=== PATIENT | female | born 1960 | race Caucasian/White ===

== ENCOUNTER 2018-03-29 19:22 | Emergency (ER) | payer MEDICAID ==
[~2018-03-29] VITALS: Ht 162.6 cm; Wt 89.2 kg
[~2018-03-29 19:22] MED LIST: ONDA4TAB6 PO; SACC250C PO
[2018-03-29 19:29] VITALS: BP 164/96
[2018-03-29] MEDS ORDERED: chlordiazePOXIDE 25mg capsule PO ONE (20:55)
[2018-03-29] MEDS ORDERED: normal saline 1000ML IV soln IVB ONE (20:55)
[2018-03-29] MEDS ORDERED: magnesium 2GM in 50ml NS 50 ML IV ONE (20:55)
[2018-03-29] MEDS ORDERED: LORazepam 2 mg/ml vial IV ONE (20:55)
[2018-03-29 21:06] LABS: CLARITY,URINE CLEAR (Clear); COLOR,URINE YELLOW (Yellow); GLUCOSE, URINE NEGATIVE (Neg); KETONES,URINE >=80 mg/dl (Neg); LEUKOCYTE ESTERASE ,URINE NEGATIVE (Neg); NITRITES, URINE NEGATIVE (Neg); OCCULT BLOOD,URINE LARGE (Neg); PROTEIN,URINE 100 mg/dl (Neg)
[2018-03-29 21:11] LABS: BASOPHILS % (AUTO) 0.2 % (0-1); EOSINOPHILS % (AUTO) 0 % (0-6); HEMATOCRIT 40.3 % (35.0-45.0); HEMOGLOBIN 13.8 g/dl (12.0-16.0); LYMPHOCYTES # (AUTO) 0.6 X10'3 (1.1-4.8); LYMPHOCYTES % (AUTO) 9.6 % (21-51); MEAN CORPUSCULAR HEMOGLOBIN 33.7 PG (27.0-31.0); MEAN CORPUSCULAR HGB CONC 34.1 % (33.0-36.5); MEAN CORPUSCULAR VOLUME 98.8 FL (78-98); MONOCYTES # (AUTO) 0.4 X10'3 (0-0.9); MONOCYTES % (AUTO) 5.6 % (2-12); NEUTROPHILS # (AUTO) 5.3 X10'3 (1.8-7.7); NEUTROPHILS % (AUTO) 84.6 % (42-75); PLATELET COUNT 153 X10'3 (140-440); RED BLOOD COUNT 4.08 X10'6 (4.20-5.60); RED CELL DISTRIBUTION WIDTH 15.5 % (11.5-14.5); WHITE BLOOD COUNT 6.3 X10'3 (4.5-11.0)
[2018-03-29 21:12] LABS: UA COLLECTION TYPE VOIDED
[2018-03-29 21:13] LABS: WBC,URINE 0-4 /HPF (0-4)
[2018-03-29 21:14] LABS: BACTERIA,URINE 2+ /HPF (Neg); SQUAMOUS EPITHELIAL CELL,UR MANY /LPF (FEW)
[2018-03-29 21:21] LABS: URINE AMPHETAMINE SCREEN NEGATIVE (Neg); URINE BARBITUATE SCREEN NEGATIVE (Neg); URINE BENZODIAZEPINES SCREEN NEGATIVE (Neg); URINE CANNABINOID SCREEN NEGATIVE (Neg); URINE COCAINE SCREEN NEGATIVE (Neg); URINE METHADONE SCREEN NEGATIVE (Neg); URINE OPIATE SCREEN NEGATIVE (Neg); URINE PHENCYCLIDINE SCREEN NEGATIVE (Neg)
[2018-03-29 21:26] LABS: ALANINE AMINOTRANSFERASE 142 U/L (12-78); ALBUMIN 3.8 G/DL (3.4-5.0); ALKALINE PHOSPHATASE 68 IU/L (46-116); ANION GAP 23 (8-16); ASPARTATE AMINO TRANSFERASE 172 U/L (10-37); BILIRUBIN,TOTAL 1.1 MG/DL (0.1-1.0); BLOOD UREA NITROGEN 7 MG/DL (7-18); BUN/CREATININE RATIO 9.7 (6.6-38.0); CHLORIDE 97 MMOL/L (99-107); CREATININE 0.72 MG/DL (0.40-0.90); ETHANOL 0.033 GM/DL (0.0-0.010); GLUCOSE 109 MG/DL (70-104); MAGNESIUM 1.2 MG/DL (1.5-2.4); POTASSIUM 3.2 MMOL/L (3.5-5.1); SODIUM 137 MMOL/L (135-145); TOTAL CARBON DIOXIDE 16.6 MMOL/L (24-32); TOTAL PROTEIN 7.6 G/DL (6.4-8.2); eGFR 83 ML/MIN
[2018-03-29] MEDS ORDERED: MAGN400C PO (22:03)
[2018-03-29] MEDS ORDERED: PHE12.5T PO (22:03)
[2018-03-29] MEDS ORDERED: CHLO25CA10 PO (22:03)
[2018-03-29] MEDS ORDERED: potassium Cl 20 mEq SR tablet PO ONE (22:05)
[2018-03-29] MEDS ORDERED: magnesium oxide 400mg tablet PO ONE (22:05)
[2018-03-29] MEDS ORDERED: chlordiazePOXIDE 25mg capsule PO PRN (22:05)
== END 2018-03-29 22:32 | disposition home or self-care (01) ==
LOC: ER 19:22
DX: F10.239 Alcohol dependence with withdrawal, unspecified (principal); Z98.890 Other specified postprocedural states; Z79.899 Other long term (current) drug therapy; Y90.0 Blood alcohol level of less than 20 mg/100 ml
CPT/HCPCS: 36415; 80053; 80305; 80320; 81001; 83735; 85025; 96365; 96375; 99284; J2060; J3475

== ENCOUNTER 2018-09-17 15:28 | Emergency (ER) | payer MEDICAID ==
[~2018-09-17] VITALS: Ht 162.6 cm; Wt 95.8 kg
[~2018-09-17 15:28] MED LIST changes: +CHLO25CA10 PO; +MAGN400C PO; +PROM12.512 PO
[2018-09-17] MEDS ORDERED: LIDOcaine 1% w/epiNEPHrine 1:200,000 30ml vial IM ONE (16:30)
[2018-09-17] MEDS ORDERED: normal saline 1000ML IV soln IVB ONE (16:35)
[2018-09-17] MEDS ORDERED: LORazepam 2 mg/ml vial IV ONE (16:35)
[2018-09-17 16:55] LABS: BASOPHILS # (AUTO) 0.1 X10'3 (0-0.2); BASOPHILS % (AUTO) 1.2 % (0-1); EOSINOPHILS % (AUTO) 0.2 % (0-6); HEMATOCRIT 44.6 % (35.0-45.0); HEMOGLOBIN 15.2 g/dl (12.0-16.0); LYMPHOCYTES # (AUTO) 0.7 X10'3 (1.1-4.8); LYMPHOCYTES % (AUTO) 14.8 % (21-51); MEAN CORPUSCULAR HEMOGLOBIN 34.6 PG (27.0-31.0); MEAN CORPUSCULAR HGB CONC 34.1 g/dL (33.0-36.5); MEAN CORPUSCULAR VOLUME 101.5 FL (78-98); MEAN PLATELET VOLUME 7.2 FL (7.4-10.4); MONOCYTES # (AUTO) 0.5 X10'3 (0-0.9); MONOCYTES % (AUTO) 9.5 % (2-12); NEUTROPHILS # (AUTO) 3.7 X10'3 (1.8-7.7); NEUTROPHILS % (AUTO) 74.3 % (42-75); PLATELET COUNT 157 X10'3 (140-440); RED CELL DISTRIBUTION WIDTH 15.5 % (11.5-14.5)
[2018-09-17 17:03] LABS: CLARITY,URINE SLIGHTLY CLOUDY (Clear); GLUCOSE, URINE NEGATIVE (Neg); KETONES,URINE 40 mg/dl (Neg); LEUKOCYTE ESTERASE ,URINE NEGATIVE (Neg); NITRITES, URINE NEGATIVE (Neg); OCCULT BLOOD,URINE LARGE (Neg); PROTEIN,URINE >=300 mg/dl (Neg)
[2018-09-17 17:05] LABS: COLOR,URINE DARK YELLOW (Yellow); UA COLLECTION TYPE CLN CATCH MIDSTREAM
[2018-09-17 17:06] LABS: ALANINE AMINOTRANSFERASE 96 U/L (12-78); ALBUMIN 3.9 G/DL (3.4-5.0); ALBUMIN/GLOBULIN RATIO 0.9 (1.1-1.5); ALKALINE PHOSPHATASE 90 IU/L (46-116); AMYLASE 45 U/L (25-115); ANION GAP 16 (8-16); ASPARTATE AMINO TRANSFERASE 151 U/L (10-37); BLOOD UREA NITROGEN 11 MG/DL (7-18); BUN/CREATININE RATIO 13.8 (6.6-38.0); CALCIUM 9.4 MG/DL (8.5-10.1); CHLORIDE 101 MMOL/L (99-107); GLUCOSE 106 MG/DL (70-104); LIPASE 198 U/L (73-393); POTASSIUM 3.5 MMOL/L (3.5-5.1); SODIUM 138 MMOL/L (135-145); TOTAL CARBON DIOXIDE 20.6 MMOL/L (24-32); TOTAL PROTEIN 8.2 G/DL (6.4-8.2); eGFR 74 ML/MIN
[2018-09-17 17:15] LABS: BACTERIA,URINE 3+ /HPF (Neg); HYALINE CASTS 0-3 /LPF (NEGATIVE); MUCUS STRANDS MANY /LPF (Neg); RBC,URINE 20-50 /HPF (0-2); SQUAMOUS EPITHELIAL CELL,UR MANY /LPF (FEW); WBC,URINE 0-4 /HPF (0-4)
[2018-09-17] MEDS ORDERED: phenobarbital inj 260 MG in normal saline 100ml IV soln 98 ML IV ONE (18:50)
[2018-09-17] MEDS ORDERED: phenobarbital inj 130 MG in normal saline 100ml IV soln 99 ML IV ONE (20:15)
[2018-09-17] MEDS ORDERED: cloNIDine 0.1 mg tablet PO ONE (20:25)
[2018-09-17] MEDS ORDERED: ONDA4TAB6 PO (20:54)
[2018-09-17] MEDS ORDERED: HYDR-3686 PO (20:54)
--- NOTE | 2018-09-17 21:06 | NUR ---
CALLED PHARMACY RE PHENOBARBATOL ORDER, BEULAH SAID THEY ARE WORKING ON IT
[2018-09-17 22:56] VITALS: BP 140/90
== END 2018-09-17 22:58 | disposition home or self-care (01) ==
LOC: ER 15:29
DX: F10.129 Alcohol abuse with intoxication, unspecified (principal); Z79.899 Other long term (current) drug therapy; Z56.0 Unemployment, unspecified; Z98.890 Other specified postprocedural states; Y90.9 Presence of alcohol in blood, level not specified
CPT/HCPCS: 36415; 80053; 81001; 82150; 83690; 85025; 85610; 96365; 96366; 96375; 99284; J2060; J2560; J7030

== ENCOUNTER 2018-11-11 18:54 | Emergency (ER) | payer MEDICAID ==
[~2018-11-11] VITALS: Ht 162.6 cm; Wt 86.2 kg
[2018-11-11] MEDS ORDERED: normal saline 1000ML IV soln IVB ONE ×2 (19:35→20:00)
[2018-11-11] MEDS ORDERED: ondansetron/PF 4mg/2ml inj IV ONE (19:35)
[2018-11-11 19:57] LABS: BASOPHILS % (AUTO) 0.9 % (0-1); EOSINOPHILS % (AUTO) 0.7 % (0-6); HEMATOCRIT 41.9 % (35.0-45.0); LYMPHOCYTES # (AUTO) 0.6 X10'3 (1.1-4.8); LYMPHOCYTES % (AUTO) 10.6 % (21-51); MEAN CORPUSCULAR HEMOGLOBIN 34.2 PG (27.0-31.0); MEAN CORPUSCULAR HGB CONC 33.5 g/dL (33.0-36.5); MEAN CORPUSCULAR VOLUME 102.1 FL (78-98); MEAN PLATELET VOLUME 7.4 FL (7.4-10.4); MONOCYTES # (AUTO) 0.4 X10'3 (0-0.9); MONOCYTES % (AUTO) 7.1 % (2-12); NEUTROPHILS # (AUTO) 4.5 X10'3 (1.8-7.7); NEUTROPHILS % (AUTO) 80.7 % (42-75); PLATELET COUNT 147 X10'3 (140-440); RED BLOOD COUNT 4.11 X10'6 (4.20-5.60); RED CELL DISTRIBUTION WIDTH 15.2 % (11.5-14.5); WHITE BLOOD COUNT 5.6 X10'3 (4.5-11.0)
[2018-11-11] MEDS ORDERED: LORazepam 2 mg/ml vial IV ONE (20:00)
[2018-11-11] MEDS ORDERED: thiamine 100mg tablet PO ONE (20:00)
[2018-11-11] MEDS ORDERED: folic acid 1mg tablet PO ONE (20:00)
[2018-11-11 20:03] LABS: ALANINE AMINOTRANSFERASE 70 U/L (12-78); ALBUMIN 3.8 G/DL (3.4-5.0); ALKALINE PHOSPHATASE 71 IU/L (46-116); ANION GAP 19 (8-16); ASPARTATE AMINO TRANSFERASE 104 U/L (10-37); BILIRUBIN,TOTAL 1.1 MG/DL (0.1-1.0); BLOOD UREA NITROGEN 11 MG/DL (7-18); BUN/CREATININE RATIO 13.6 (6.6-38.0); CALCIUM 8.9 MG/DL (8.5-10.1); CHLORIDE 103 MMOL/L (99-107); CREATININE 0.81 MG/DL (0.40-0.90); GLUCOSE 91 MG/DL (70-104); LIPASE 192 U/L (73-393); MAGNESIUM 1.9 MG/DL (1.5-2.4); PHOSPHORUS 2.3 MG/DL (2.3-4.5); POTASSIUM 3.6 MMOL/L (3.5-5.1); SODIUM 140 MMOL/L (135-145); TOTAL CARBON DIOXIDE 18.2 MMOL/L (24-32); TOTAL PROTEIN 7.8 G/DL (6.4-8.2); eGFR 73 ML/MIN
[2018-11-11] MEDS: multivitamins, therapeutics tablet PO SCH ×2 (20:13→20:16)
--- NOTE | 2018-11-11 20:46 | NUR ---
Patient refused to provide urine sample at this time.
[2018-11-11 21:54] VITALS: BP 140/91
== END 2018-11-11 22:02 | disposition home or self-care (01) ==
LOC: ER 18:55
DX: F10.20 Alcohol dependence, uncomplicated (principal); R00.0 Tachycardia, unspecified; Z79.899 Other long term (current) drug therapy; Z98.890 Other specified postprocedural states
CPT/HCPCS: 36415; 80053; 83690; 83735; 84100; 85025; 93005; 96374; 96375; 99284; J2060; J2405; J7030

== ENCOUNTER 2019-03-03 04:37 | Emergency (ER) | payer MEDICAID ==
[~2019-03-03] VITALS: Ht 162.6 cm; Wt 90.9 kg
[2019-03-03 04:39] VITALS: BP 184/112
[2019-03-03] MEDS ORDERED: chlordiazePOXIDE 25mg capsule PO ONE (05:20)
[2019-03-03] MEDS ORDERED: CHLO25CA10 PO (05:22)
== END 2019-03-03 05:47 | disposition home or self-care (01) ==
LOC: ER 04:38
DX: F10.920 Alcohol use, unspecified with intoxication, uncomplicated (principal); Z98.890 Other specified postprocedural states; Z79.899 Other long term (current) drug therapy; Y90.9 Presence of alcohol in blood, level not specified
CPT/HCPCS: 93005; 99283

== ENCOUNTER 2019-07-25 17:34 | Emergency (ER) | payer MEDICAID ==
[~2019-07-25] VITALS: Ht 162.6 cm; Wt 90.9 kg
[2019-07-25] MEDS ORDERED: diphenhydrAMINE 25mg capsule PO ONE (18:05)
[2019-07-25] MEDS ORDERED: triamcinolone acetonide 40mg/ml inj IM ONE (18:05)
[2019-07-25] MEDS ORDERED: PRED20TA PO (18:08)
[2019-07-25 18:31] VITALS: BP 110/64
== END 2019-07-25 18:38 | disposition home or self-care (01) ==
LOC: ER 17:34
DX: L23.9 Allergic contact dermatitis, unspecified cause (principal); Z72.89 Other problems related to lifestyle; Z79.899 Other long term (current) drug therapy; Z98.890 Other specified postprocedural states
CPT/HCPCS: 96372; 99283; J3301; Q0163